=== PATIENT | female | born 1985 ===

== ENCOUNTER 2021-03-13 12:01 | Emergency (ER) | payer SELFPAY ==
--- NOTE | 2021-03-13 12:45 | Emergency Department Report ---
ED Female HPI - General Chief complaint: Vaginal Bleeding Stated complaint: HEAVY UTERINE BLEEDING Time Seen by Provider: 03/13/21 12:28 Source: patient Mode of arrival: Ambulatory Limitations: No Limitations - History of Present Illness Initial comments: 35 year old female presents to ED with complaints of abnormal vaginal bleeding. Patient states that she started bleeding around 03/01. She states it thought it was related her typical period but she states that the bleeding has been heavier than her typical period and lasting longer. She states she had to changed 3-4 pads per day and she has been passing clots. She reports abdominal cramping when symptoms first started but this has since improved. She denies any UTI symptoms or abnl vag discharge. She is s/p tubal ligation. She denies similar symptoms in past. MD Complaint: vaginal bleeding -: Gradual (since 03/01/2021) - Related Data Home Medications Medication Instructions Recorded Confirmed Last Taken No Known Home Medications [No 03/13/21 03/13/21 Unknown Reported Home Medications] Allergies Allergy/AdvReac Type Severity Reaction Status Date / Time No Known Allergies Allergy Unverified 03/13/21 12:19 ED Review of Systems ROS: Stated complaint: HEAVY UTERINE BLEEDING Other details as noted in HPI Comment: All other systems reviewed and negative Constitutional: denies: chills, fever Eyes: denies: eye pain, eye discharge, vision change ENT: denies: ear pain, throat pain, dental pain, hearing loss, epistaxis, congestion Respiratory: denies: cough, shortness of breath, SOB with exertion, SOB at rest, wheezing Cardiovascular: denies: chest pain, palpitations Gastrointestinal: denies: abdominal pain, nausea, vomiting, diarrhea, constipation, hematemesis, melena, hematochezia Genitourinary: abnormal menses. denies: urgency, dysuria, frequency, hematuria, discharge Musculoskeletal: denies: back pain, joint swelling, arthralgia Skin: denies: rash, lesions, change in color, change in hair/nails, pruritus Neurological: denies: headache, weakness, numbness, paresthesias, confusion, abnormal gait, vertigo Psychiatric: denies: anxiety, depression, auditory hallucinations, visual hallucinations, homicidal thoughts, suicidal thoughts Hematological/Lymphatic: denies: easy bleeding, easy bruising, swollen glands ED Past Medical Hx - Medications Home Medications: Home Medications Medication Instructions Recorded Confirmed Last Taken Type No Known Home Medications [No 03/13/21 03/13/21 Unknown History Reported Home Medications] ED Physical Exam - General Limitations: No Limitations General appearance: alert, in no apparent distress - Head Head exam: Present: atraumatic, normocephalic, normal inspection - Eye Eye exam: Present: normal appearance, PERRL, EOMI Pupils: Present: normal accommodation - ENT ENT exam: Present: normal exam, mucous membranes moist - Neck Neck exam: Present: normal inspection, full ROM - Respiratory Respiratory exam: Present: normal lung sounds bilaterally. Absent: respiratory distress, wheezes, rales, rhonchi - Cardiovascular Cardiovascular Exam: Present: regular rate, normal rhythm, normal heart sounds - GI/Abdominal GI/Abdominal exam: Present: soft. Absent: distended, tenderness, guarding, rebound - Neurological Exam Neurological exam: Present: alert, oriented X3, CN II-XII intact, normal gait - Psychiatric Psychiatric exam: Present: normal affect, normal mood - Skin Skin exam: Present: intact ED Course Vital Signs 03/13/21 03/13/21 03/13/21 12:16 13:17 14:20 Temperature 98.5 F 97.7 F 98.0 F Pulse Rate 66 83 66 Respiratory 18 14 14 Rate Blood Pressure 121/68 Blood Pressure 116/70 111/73 [Right] O2 Sat by Pulse 100 99 99 Oximetry ED Medical Decision Making - Lab Data Result diagrams: 03/13/21 13:06 03/13/21 13:06 - Medical Decision Making 1437: All labs reviewed, and stable. hCG is negative. Went to discuss lab results with patient, discharge instructions but she was nowhere to be found. After several attempts to try to find patient, she was noted to be found. Patient apparently eloped without notifying myself and staff and prior to being able to discuss her results and given discharge instructions. Critical care attestation.: If time is entered above; I have spent that time in minutes in the direct care of this critically ill patient, excluding procedure time. ED Disposition Clinical Impression: Abnormal vaginal bleeding Disposition: 07 LEFT AWOL/ELOPED Is pt being admited?: No Does the pt Need Aspirin: No Instructions: Dysfunctional Uterine Bleeding Additional Instructions: Recommend that you follow-up with your [employer] for further evaluation of the abnormal bleeding especially if he continues. Return to the ER if your symptoms changes or worsens in any way. Referrals: PRIMARY CARE, [Primary Care Provider] - 3-5 Days Time of Disposition: 14:25
[2021-03-13 13:24] LABS: Basophils % (Auto) 0.7 % (0.0-1.8); Eosinophils # (Auto) 0.4 K/mm3 (0.0-0.4); Eosinophils % (Auto) 7.3 % (0.0-4.3); Hematocrit 40.6 % (30.3-42.9); Hemoglobin 12.9 gm/dl (10.1-14.3); Lymphocytes # (Auto) 1.2 K/mm3 (1.2-5.4); Lymphocytes % (Auto) 23.1 % (13.4-35.0); Mean Corpuscular HGB Conc 32 % (30-34); Mean Corpuscular Volume 91 fl (79-97); Monocytes # (Auto) 0.4 K/mm3 (0.0-0.8); Monocytes % (Auto) 8.5 % (0.0-7.3); Platelet Count 253 K/mm3 (140-440); Red Blood Count 4.49 M/mm3 (3.65-5.03); Red Cell Distribution Width 14.1 % (13.2-15.2)
[2021-03-13 13:47] LABS: Alanine Aminotransferase 14 units/L (7-56); Albumin 4.5 g/dL (3.9-5); BUN/Creatinine Ratio 23; Blood Urea Nitrogen 16 mg/dL (7-17); Calcium 8.7 mg/dL (8.4-10.2); Hemolysis Index 4
[2021-03-13 14:22] VITALS: BP 121/68
== END 2021-03-13 15:10 | disposition left against medical advice (07) ==
LOC: ED 12:01
DX: N93.9 Abnormal uterine and vaginal bleeding, unspecified (principal)
CPT/HCPCS: 36415; 80053; 84703; 85025; 99283

== ENCOUNTER 2021-03-15 10:54 | Emergency (ER) | payer SELFPAY ==
--- NOTE | 2021-03-15 11:42 | Emergency Department Report ---
ED Female HPI - General Chief complaint: Vaginal Bleeding Stated complaint: BLEEDING Time Seen by Provider: 03/15/21 11:33 Source: patient Mode of arrival: Ambulatory Limitations: No Limitations - History of Present Illness Initial comments: Patient is a 35-year-old who presents emergency room with complaints of vaginal bleeding for 15 days. He states that she is changing her pad approximately 3-4 times a day. She denies any passing clots. She states typically she has normal menstrual cycles every month lasting approximately 7 days. She states that she last saw a [employer] [employer] in November and reports everything was normal at that time. She states that she has an appointment with her [employer] [employer] on , 03/18/2021. She denies any fever, abdominal pain, pelvic pain, nausea, vomiting, diarrhea, abnormal discharge, dysuria, lightheadedness, syncope. Past medical history of hypothyroidism. No allergies to medications. She states that she was pr eviously on control. She states that she had a tubal ligation. She states that she last used Depo-Provera in October and that was the last injection she received. - Related Data Previous Rx's Medication Instructions Recorded Last Taken Type medroxyPROGESTERone ACETATE 10 mg PO DAILY #10 tablet 03/15/21 Unknown Rx [Provera] Allergies Allergy/AdvReac Type Severity Reaction Status Date / Time No Known Allergies Allergy Verified 03/15/21 11:26 ED Review of Systems ROS: Stated complaint: BLEEDING Other details as noted in HPI Comment: All other systems reviewed and negative ED Past Medical Hx - Past Medical History Previous Medical History?: No - Surgical History Past Surgical History?: No - Social History Smoking Status: Never Smoker Substance Use Type: None - Medications Home Medications: Home Medications Medication Instructions Recorded Confirmed Last Taken Type medroxyPROGESTERone ACETATE 10 mg PO DAILY #10 tablet 03/15/21 Unknown Rx [Provera] ED Physical Exam - General Limitations: No Limitations General appearance: alert, in no apparent distress - Head Head exam: Present: atraumatic, normocephalic - Eye Eye exam: Present: normal appearance - ENT ENT exam: Present: mucous membranes moist - Respiratory Respiratory exam: Present: normal lung sounds bilaterally. Absent: respiratory distress, wheezes, rhonchi, stridor, chest wall tenderness, accessory muscle use, decreased breath sounds, prolonged expiratory - Cardiovascular Cardiovascular Exam: Present: regular rate, normal rhythm, normal heart sounds. Absent: systolic murmur, diastolic murmur, rubs, gallop - GI/Abdominal GI/Abdominal exam: Present: soft, normal bowel sounds. Absent: distended, tenderness, guarding, rebound, rigid - Neurological Exam Neurological exam: Present: alert, oriented X3 - Psychiatric Psychiatric exam: Present: normal affect, normal mood - Skin Skin exam: Present: warm, dry, intact ED Course Vital Signs 03/15/21 03/15/21 11:29 11:49 Temperature 98.4 F 98.6 F Pulse Rate 68 66 Respiratory 20 16 Rate Blood Pressure 94/76 Blood Pressure 130/83 [Right] O2 Sat by Pulse 100 100 Oximetry ED Medical Decision Making - Lab Data Vital Signs 03/15/21 03/15/21 11:29 11:49 Temperature 98.4 F 98.6 F Pulse Rate 68 66 Respiratory 20 16 Rate Blood Pressure 94/76 Blood Pressure 130/83 [Right] O2 Sat by Pulse 100 100 Oximetry - Medical Decision Making Patient is a 35-year-old who presents emergency room with complaints of vaginal bleeding for 15 days. He states that she is changing her pad approximately 3-4 times a day. She denies any passing clots. She states typically she has normal menstrual cycles every month lasting approximately 7 days. She states that she last saw a [employer] [employer] in November and reports everything was normal at that time. She states that she has an appointment with her [employer] [employer] on , 03/18/2021. She denies any fever, abdominal pain, pelvic pain, nausea, vomiting, diarrhea, abnormal discharge, dysuria, lightheadedness, syncope. Past medical history of hypothyroidism. No allergies to medications. She states that she was previously on control. She states that she had a tubal ligation. She states that she last used Depo-Provera in October and that was the last injection she received. Vitals are stable. No abdominal tenderness on exam. Patient was evaluated in the emergency department 2 days ago and had lab work performed at that time and her H&H was normal and her hCG was negative. Patient states that she was not able to stay to wait for her results so therefore she came back today for results of her test. Discussed all results with patient. Discussed the importance of [employer] follow-up. Patient given prescription for Provera. Advised patient Please take medication as prescribed. Please keep your appointment with your [employer] [employer]. Return to emergency room immediately for any new or worsening symptoms. Critical care attestation.: If time is entered above; I have spent that time in minutes in the direct care of this critically ill patient, excluding procedure time. ED Disposition Clinical Impression: Abnormal uterine bleeding (AUB) Menorrhagia Qualifiers: Menorrhagia type: with irregular cycle Qualified Code(s): N92.1 - Excessive and frequent menstruation with irregular cycle Disposition: 01 HOME / SELF CARE / HOMELESS Is pt being admited?: No Does the pt Need Aspirin: No Condition: Stable Instructions: Menorrhagia, Frin-th-Aaci, Abnormal Uterine Bleeding, [id number] Additional Instructions: Please take medication as prescribed. Please keep your appointment with your [employer]. Return to emergency room immediately for any new or worsening symptoms. 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
[2021-03-15 11:54] VITALS: BP 130/83
== END 2021-03-15 12:00 | disposition home or self-care (01) ==
LOC: ED 10:54
DX: N92.1 Excessive and frequent menstruation with irregular cycle (principal)
CPT/HCPCS: 99281

== ENCOUNTER 2021-11-02 11:23 | Emergency (ER) | payer SELFPAY ==
[2021-11-02 11:34] VITALS: BP 125/73
--- NOTE | 2021-11-02 11:53 | Emergency Department Report ---
Abscess Boil HPI - HPI Chief Complaint: Skin/Abscess/Foreign Body Stated Complaint: RT BREAST HURTING X 3 DAYS Duration: 5 Days Location: Other (right breast) History: No Fever, No Pain, No Purulent Drainage, No Numbness, No Foreign Body, No Previous History, No Insect Bite HPI: 36 female with nipple piercing jaun to right breast area. Patient has drainage noted around area of the piercing. She states she had a piercing put in x1 month. Patient denies taking any [id number] medication. States that he has been taking over the Counter pain medication for pain. States pain is currently 1 out of 10. States that she noticed drainage and redness to her nipple area x2 with weeks ago she has increased to get worse. She denies any fever chills or nausea or vomiting. Patient is alert and oriented x3. No acute distress noted. No ill appearance noted. Home Medications: Previous Rx's Medication Instructions Recorded Last Taken Type medroxyPROGESTERone ACETATE 10 mg PO DAILY #10 tablet 03/15/21 Unknown Rx [Provera] Ibuprofen [Motrin] 800 mg PO Q8HR PRN 15 Days #30 11/02/21 Unknown Rx tablet Sulfamethoxazole/Trimethoprim 1 each PO BID 10 Days #20 tab 11/02/21 Unknown Rx [Bactrim DS TAB] cephALEXin [Keflex] 500 mg PO Q12HR 10 Days #20 cap 11/02/21 Unknown Rx Allergies/Adverse Reactions: Allergies Allergy/AdvReac Type Severity Reaction Status Date / Time No Known Allergies Allergy Verified 03/15/21 11:26 ED Review of Systems ROS: Stated complaint: RT BREAST HURTING X 3 DAYS Other details as noted in HPI Constitutional: denies: chills, fever Eyes: denies: eye pain, eye discharge, vision change ENT: denies: ear pain, throat pain Respiratory: denies: cough, shortness of breath, wheezing Cardiovascular: denies: chest pain, palpitations Endocrine: no symptoms reported Gastrointestinal: denies: abdominal pain, nausea, diarrhea Genitourinary: denies: urgency, dysuria, discharge Musculoskeletal: denies: back pain, joint swelling, arthralgia Skin: denies: rash, lesions Neurological: denies: headache, weakness, paresthesias Psychiatric: denies: anxiety, depression Hematological/Lymphatic: denies: easy bleeding, easy bruising ED Past Medical Hx - Social History Smoking Status: Never Smoker Substance Use Type: None - Medications Home Medications: Home Medications Medication Instructions Recorded Confirmed Last Taken Type medroxyPROGESTERone ACETATE 10 mg PO DAILY #10 tablet 03/15/21 Unknown Rx [Provera] Ibuprofen [Motrin] 800 mg PO Q8HR PRN 15 Days #30 11/02/21 Unknown Rx tablet Sulfamethoxazole/Trimethoprim 1 each PO BID 10 Days #20 tab 11/02/21 Unknown Rx [Bactrim DS TAB] cephALEXin [Keflex] 500 mg PO Q12HR 10 Days #20 cap 11/02/21 Unknown Rx ED Abscess Boil Physical Exam - Exam General: Vital signs noted. No distress. Alert and acting appropriately. Exam: Yes Tenderness, Yes Surrounding Cellulites/Erythema, No Fluctuance, No Lymphangitis, No Crepitation, No Heart Murmur, No Normal Neurologic Exam, No Normal Circulation ED Course Vital Signs 11/02/21 11:31 Temperature 98.9 F Pulse Rate 99 H Respiratory 18 Rate Blood Pressure 125/73 [Right] O2 Sat by Pulse 97 Oximetry Critical care attestation.: If time is entered above; I have spent that time in minutes in the direct care of this critically ill patient, excluding procedure time. ED Medical Decision Making - Medical Decision Making 36 female with nipple piercing jaun to right breast area. Patient has drainage noted around area of the piercing. She states she had a piercing put in x1 month. Patient denies taking any [id number] medication. States that he has been taking over the Counter pain medication for pain. States pain is currently 1 out of 10. States that she noticed drainage and redness to her nipple area x2 with weeks ago she has increased to get worse. She denies any fever chills or nausea or vomiting. Patient is alert and oriented x3. No acute distress noted. No ill appearance noted. Physical examination patient has purulent drainage noted from the right nipple area with appearance and. Erythema noted around the areola area. Rechecked the patient is resting quietly quietly and comfortable and feeling better. I discussed the results of diagnostic study, my clinical impression and the plan for further treatment with the patient. Patient agrees with plan and discharge at this present time. All question addressed. I have given the patient instruction regarding a diagnosis ,expectation ,follow- up and return precaution. I explained to the patient that emergent condition may arise and to return to the ED for new worsen and any new persisting condition. I have explained the importance of following up with the primary care physician or referral physician listed below has instructed. The patient verbalized understanding of discharge instruction. ED Disposition Clinical Impression: Cellulitis Qualifiers: Site of cellulitis: unspecified site Qualified Code(s): L03.90 - Cellulitis, unspecified Disposition: HOME / SELF CARE / HOMELESS Is pt being admited?: No Does the pt Need Aspirin: No Condition: Stable Instructions: Cellulitis, Adult Additional Instructions: take medication as prescribed return to Ed for worsen symptoms Prescriptions: Sulfamethoxazole/Trimethoprim [Bactrim DS TAB] 1 each PO BID 10 Days #20 tab cephALEXin [Keflex] 500 mg PO Q12HR 10 Days #20 cap Ibuprofen [Motrin] 800 mg PO Q8HR PRN 15 Days #30 tablet PRN Reason: Pain, Mild (1-3) Referrals: [facility] [Provider Group] - 3-5 Days Forms: Work/School Release Form(ED) Time of Disposition: 11:57
== END 2021-11-02 12:00 | disposition home or self-care (01) ==
LOC: ED 11:23
DX: L03.90 Cellulitis, unspecified (principal)
CPT/HCPCS: 99282